=== PATIENT | female | born 1990 | race Caucasian/White ===

== ENCOUNTER 2017-07-27 03:03 | Emergency (ER) | payer OTHER ==
[2017-07-27 03:19] VITALS: BP 126/63; PULSE 76; TEMP 97.6; BMI 24.7
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
== END 2017-07-27 03:25 | disposition home or self-care (01) ==
LOC: JER 03:03
DX: S01.01XA Laceration without foreign body of scalp, initial encounter (principal); W20.8XXA Other cause of strike by thrown, projected or falling object, initial encounter; Y93.89 Activity, other specified; Y92.59 Other trade areas as the place of occurrence of the external cause; Y99.8 Other external cause status
CPT/HCPCS: 99282-25

== ENCOUNTER 2018-10-26 08:56 | Emergency (ER) | payer OTHER ==
[2018-10-26 09:00] VITALS: TEMP 98.2; BMI 22.6
[2018-10-26] MEDS ORDERED: SODIUM CHLORIDE 1,000 ML IV STA ×2 (09:23→10:00)
[2018-10-26] MEDS ORDERED: ONDANSETRON 4 MG/2 ML VIAL IVPB ONE (09:23)
--- NOTE | 2018-10-26 09:27 | PDOC ---
History of Present Illness - General Chief Complaint: Vomiting/Diarrhea Stated Complaint: CHEST PAIN Time Seen by Provider: 10/26/18 09:16 History Source: Patient Exam Limitations: No Limitations - History of Present Illness Initial Comments: 10/26/18 09:24 28 year old female with no past medical history presents with n/v/d and suprapubic discomfort since overnight. No sick contacts or recent travels. No known bad foods. Yesterday night, developed 2 episodes of NBNB emesis and some loose stools. Developed suprapubic discomfort that is described as crampy, almost like her menstrual period. However, pt LMP ~1 month ago and expects to have her cycle soon. Took a home test which tested negative. +tactile fevers and chills at home. Denies dysuria, urinary frequency, vaginal bleeding, flank pain. [place] generally unwell, so came into the ED. 10/26/18 09:25 Pt endorses NO chest pain to me. Past History - Past Medical History Allergies/Adverse Reactions: Allergies Allergy/AdvReac Type Severity Reaction Status Date / Time No Known Allergies Allergy Verified 10/26/18 09:00 Home Medications: Ambulatory Orders Acetaminophen [Tylenol] 650 mg PO Q4H PRN #20 tablet 10/26/18 Famotidine [Pepcid] 20 mg PO BID PRN #14 tablet 10/26/18 Ondansetron HCl [Zofran] 4 mg PO Q8H PRN #15 tablet 10/26/18 COPD: No - Immunization History Immunization Up to Date: Yes - Suicide/Smoking/Psychosocial Hx Smoking History: Never smoked Have you smoked in the past 12 months: No Number of Cigarettes Smoked Daily: 0 Hx Alcohol Use: No Drug/Substance Use Hx: No Substance Use Type: None Review of Systems - Review of Systems Able to Perform ROS?: Yes Comments:: 10/26/18 09:25 GENERAL/CONSTITUTIONAL: [No fever or chills. No weakness. No weight change.] HEAD, EYES, EARS, NOSE AND THROAT: [No change in vision. No ear pain or discharge. No sore throat.] CARDIOVASCULAR: [No chest pain or shortness of breath.] RESPIRATORY: [No cough, wheezing, or hemoptysis.] GASTROINTESTINAL: + nausea, vomiting, diarrhea. + abdominal pain. No rectal bleeding.] GENITOURINARY: [No dysuria, frequency, or change in urination.] MUSCULOSKELETAL: [No joint or muscle swelling or pain. No neck or back pain.] SKIN AND BREASTS: [No rash or easy bruising.] NEUROLOGIC: [No headache, vertigo, loss of consciousness, or loss of sensation.] PSYCHIATRIC: [No depression or anxiety.] ENDOCRINE: [No increased thirst. No abnormal weight change.] HEMATOLOGIC/LYMPHATIC: [No anemia, easy bleeding, or history of blood clots.] ALLERGIC/IMMUNOLOGIC: [No hives or skin allergy. No latex allergy.] *Physical Exam - Vital Signs Last Vital Signs Temp Pulse Resp BP Pulse Ox 98.2 F 75 18 104/58 L 99 10/26/18 08:58 10/26/18 08:58 10/26/18 08:58 10/26/18 08:58 10/26/18 08:58 - Physical Exam Comments: 10/26/18 09:26 GENERAL: Awake, alert, and fully oriented, in no acute distress HEAD: No signs of trauma EYES: EOMI, sclera anicteric, conjunctiva clear ENT: Auricles normal inspection, hearing grossly normal, nares patent NECK: Normal ROM, supple, LUNGS: Breath sounds equal, clear to auscultation bilaterally. No wheezes, and no crackles HEART: Regular rate and rhythm, normal S1 and S2, no murmurs, rubs or gallops ABDOMEN: Soft No guarding, no rebound. No masses. +suprapubic tenderness to palpation. Negative Mcburney's point. EXTREMITIES: Normal range of motion, no edema. No clubbing or cyanosis. No cords, erythema, or tenderness NEUROLOGICAL: Cranial nerves II through XII grossly intact. Normal speech SKIN: Warm, Dry, normal turgor, no rashes or lesions noted. Moderate Sedation - Procedure Monitoring Vital Signs: Procedure Monitoring Vital Signs Temperature 98.2 F 10/26/18 08:58 Pulse Rate 75 10/26/18 08:58 Respiratory Rate 18 10/26/18 08:58 Blood Pressure 104/58 L 10/26/18 08:58 O2 Sat by Pulse Oximetry (%) 99 10/26/18 08:58 ED Treatment Course - LABORATORY CBC & Chemistry Diagram: 10/26/18 09:31 10/26/18 09:31 Medical Decision Making - Medical Decision Making 10/26/18 09:26 Vital Signs Temp Pulse Resp BP Pulse Ox 98.2 F 75 18 104/58 L 99 10/26/18 08:58 10/26/18 08:58 10/26/18 08:58 10/26/18 08:58 10/26/18 08:58 This is a healthy 28-year-old female with nausea, vomiting, diarrhea and suprapubic pain. We'll need to check urine test. If positive, we'll need to obtain transvaginal ultrasound to evaluate for potential ectopic. However, if negative, I suspect the patient may either have cystitis or gastroenteritis. We'll obtain labs, urine prior to tests, treat symptoms give IV fluids and reassess. 10/26/18 11:29 CBC, BMP 10/26/18 09:31 10/26/18 09:31 CMP Sodium 140 mmol/L (136-145) 10/26/18 09:31 Potassium 4.5 mmol/L (3.5-5.1) 10/26/18 09:31 Chloride 108 mmol/L (98-107) H 10/26/18 09:31 Carbon Dioxide 28 mmol/L (21-32) 10/26/18 09:31 Anion Gap 3 MMOL/L (8-16) L 10/26/18 09:31 BUN 14 mg/dL (7-18) 10/26/18 09:31 Creatinine 0.7 mg/dL (0.55-1.3) 10/26/18 09:31 Creat Clearance w eGFR > 60 (>60) 10/26/18 09:31 Random Glucose 95 mg/dL (74-106) 10/26/18 09:31 Calcium 9.3 mg/dL (8.5-10.1) 10/26/18 09:31 Total Bilirubin 0.5 mg/dL (0.2-1) 10/26/18 09:31 AST 28 U/L (15-37) 10/26/18 09:31 ALT 45 U/L (13-61) 10/26/18 09:31 Alkaline Phosphatase 82 U/L (45-117) 10/26/18 09:31 Total Protein 7.4 g/dl (6.4-8.2) 10/26/18 09:31 Albumin 4.0 g/dl (3.4-5.0) 10/26/18 09:31 Urine Test Results Urine Color Yellow 10/26/18 10:43 Urine Appearance Clear 10/26/18 10:43 Urine pH 7.0 (5.0-8.0) 10/26/18 10:43 Ur Specific [place] 1.020 (1.010-1.035) 10/26/18 10:43 Urine Protein Negative (NEGATIVE) 10/26/18 10:43 Urine Glucose (UA) Negative (NEGATIVE) 10/26/18 10:43 Urine Ketones Negative (NEGATIVE) 10/26/18 10:43 Urine Blood Negative (NEGATIVE) 10/26/18 10:43 Urine Nitrite Negative (NEGATIVE) 10/26/18 10:43 Urine Bilirubin Negative (<2.0 mg/dL) 10/26/18 10:43 Ur Leukocyte Esterase Negative (NEGATIVE) 10/26/18 10:43 Urine test negative. The patient reports feeling significantly better. I suspect the patient likely has gastroenteritis. Will d/c her home with supportive care with return precautions. I discussed the physical exam findings, ancillary test results and final diagnoses with the patient. I answered all of the patient's questions. The patient was satisfied with the care received and felt comfortable with the discharge plan and treatment plan. The patient will call their primary care physician within 24 hours to arrange follow-up and will return to the Emergency Department with any new, persistant or worsening symptoms. *DC/Admit/Observation/Transfer Diagnosis at time of Disposition: Gastroenteritis - Discharge Dispostion Disposition: HOME Condition at time of disposition: Improved Decision to Admit order: No - Prescriptions Prescriptions: Acetaminophen [Tylenol] 650 mg PO Q4H PRN #20 tablet PRN Reason: Pain Famotidine [Pepcid] 20 mg PO BID PRN #14 tablet PRN Reason: GERD Ondansetron HCl [Zofran] 4 mg PO Q8H PRN #15 tablet PRN Reason: Nausea - Referrals Referrals: ON STAFF,NOT [Primary Care Provider] - - Patient Instructions Printed Discharge Instructions: DI for Viral Gastroenteritis -- Adult Additional Instructions: Please drink plenty of fluids and rest. It may take several days before your symptoms resolve. Take 650 mg tylenol every 4 hours as needed for pain and fever. Take 4 mg zofran every 8 hours as needed for nausea. Take 20 mg pepcid every 12 hours as needed for acid relux. If you have uncontrollable pain, please return to the ER. Otherwise, please follow up with your doctor. - Post Discharge Activity Forms/Work/School Notes: Back to Work
[2018-10-26] MEDS ORDERED: ONDANSETRON 4 MG/2 ML VIAL ONE (09:35)
[2018-10-26 09:48] LABS: BASO % 0.7 % (0-2.0); EOS % 3.9 % (0-4.5); HEMATOCRIT 37.5 % (32.4-45.2); HEMOGLOBIN 12.8 GM/dL (10.7-15.3); LYMPH % 26.8 % (8-40); MCH 29.6 pg (25.7-33.7); MCHC 34.2 g/dl (32.0-36.0); MEAN CELL VOLUME 86.7 fl (80-96); MEAN PLT VOLUME 9.8 fl (7.5-11.1); MONO % 9.9 % (3.8-10.2); NEUT % 58.7 % (42.8-82.8); PLATELET COUNT 155 K/MM3 (134-434); RBC 4.32 M/mm3 (3.60-5.2); RDW 13.2 % (11.6-15.6); WHITE BLOOD COUNT 6.2 K/mm3 (4.0-10.0)
[2018-10-26 10:15] LABS: ALK PHOS 82 U/L (45-117); ANION GAP 3 MMOL/L (8-16); BILIRUBIN,TOTAL 0.5 mg/dL (0.2-1); BLOOD UREA NITROGEN 14 mg/dL (7-18); CALCIUM 9.3 mg/dL (8.5-10.1); CHLORIDE 108 mmol/L (98-107); CO2 28 mmol/L (21-32); CREATININE 0.7 mg/dL (0.55-1.3); GLUCOSE,RANDOM 95 mg/dL (74-106); POTASSIUM 4.5 mmol/L (3.5-5.1); SGOT/AST 28 U/L (15-37); SGPT/ALT 45 U/L (13-61); SODIUM 140 mmol/L (136-145); TOT PROT 7.4 g/dl (6.4-8.2)
[2018-10-26 11:00] LABS: HCG,QUALITATIVE URINE Negative
[2018-10-26 11:18] LABS: URINE APPEARANCE CLEAR; URINE BILIRUBIN NEGATIVE (<2.0 mg/dL); URINE COLOR YELLOW; URINE GLUCOSE (UA) NEGATIVE (NEGATIVE); URINE KETONE NEGATIVE (NEGATIVE); URINE LEUK ESTERASE NEGATIVE (NEGATIVE); URINE NITRITE NEGATIVE (NEGATIVE); URINE PROTEIN NEGATIVE (NEGATIVE); URINE UROBILINOGEN NEGATIVE mg/dL (0.2-1.0)
[2018-10-26 11:21] VITALS: BP 103/48; PULSE 80
== END 2018-10-26 11:56 | disposition home or self-care (01) ==
LOC: JER 08:56
PROC: 3E0337Z Introduction of Electrolytic and Water Balance Substance into Peripheral Vein, Percutaneous Approach (ICD-10-PCS; principal; 2018-10-26)
PROC: 3E033GC Introduction of Other Therapeutic Substance into Peripheral Vein, Percutaneous Approach (ICD-10-PCS; 2018-10-26)
DX: K52.9 Noninfective gastroenteritis and colitis, unspecified (principal)
CPT/HCPCS: 36415; 80053; 81003; 84703; 85025; 87086; 96361; 96374; 99283-25; J7030

== ENCOUNTER 2019-03-03 12:48 | Emergency (ER) | payer OTHER ==
[2019-03-03 12:57] VITALS: BP 106/55; PULSE 81; TEMP 98.4; BMI 24.7
--- NOTE | 2019-03-03 12:59 | PDOC ---
Rapid Medical Evaluation Chief Complaint: Pain, Acute Time Seen by Provider: 03/03/19 12:55 Medical Evaluation: Allergies Allergy/AdvReac Type Severity Reaction Status Date / Time No Known Allergies Allergy Verified 10/26/18 09:00 03/03/19 12:55 The patient is a 28 y/o F who presents with lower abdominal pain x3 days. LMP January 13. Admits to vomiting. Denies fevers, chills, nausea, diarrhea, constipation, frequency, urgency and hematuira, and vaginal discharge Exam: generalized discomfort to the lower abdomen Orders, Labs, urine Pt to proceed to the ER for further evaluation Discharge Disposition - Diagnosis Abdominal pain Qualifiers: Abdominal location: generalized Qualified Code(s): R10.84 - Generalized abdominal pain - Discharge Dispostion Condition at time of disposition: Stable - Referrals - Patient Instructions - Post Discharge Activity
--- NOTE | 2019-03-03 13:39 | PDOC ---
History of Present Illness <Becki Paul - Last Filed: 03/03/19 15:42> - General History Source: Patient - History of Present Illness Timing/Duration: reports: constant Abdominal Pain Onset Location: reports: suprapubic <Olivia Loya - Last Filed: 03/03/19 16:35> - General Chief Complaint: Pain, Acute Stated Complaint: LWR ABD PAIN Time Seen by Provider: 03/03/19 12:55 Past History <Becki Paul - Last Filed: 03/03/19 15:42> - Past Medical History COPD: No - Immunization History Immunization Up to Date: Yes - Suicide/Smoking/Psychosocial Hx Smoking History: Never smoked Have you smoked in the past 12 months: No Number of Cigarettes Smoked Daily: 0 Information on smoking cessation initiated: No Hx Alcohol Use: No Drug/Substance Use Hx: No Substance Use Type: None <Olivia Loya - Last Filed: 03/03/19 16:35> - Past Medical History Allergies/Adverse Reactions: Allergies Allergy/AdvReac Type Severity Reaction Status Date / Time No Known Allergies Allergy Verified 10/26/18 09:00 Home Medications: Ambulatory Orders NK [No Known Home Medication] 03/03/19 Review of Systems - Review of Systems Constitutional: No: Chills, Fever ABD/GI: Yes: Nausea, Vomiting, Abdominal cramping. No: Blood Streaked Bowels, Constipated, Diarrhea, Rectal Bleeding : No: Dysuria, Flank Pain, Hematuria, Lesions Musculoskeletal: No: Back Pain <Olivia Loya - Last Filed: 03/03/19 16:35> *Physical Exam - Vital Signs Last Vital Signs Temp Pulse Resp BP Pulse Ox 98.4 F 81 18 106/55 L 100 03/03/19 12:55 03/03/19 12:55 03/03/19 12:55 03/03/19 12:55 03/03/19 12:55 <Becki Paul - Last Filed: 03/03/19 15:42> - Vital Signs Last Vital Signs Temp Pulse Resp BP Pulse Ox 98.4 F 81 18 106/55 L 100 03/03/19 12:55 03/03/19 12:55 03/03/19 12:55 03/03/19 12:55 03/03/19 12:55 - Physical Exam General Appearance: Yes: Appropriately Dressed. No: Apparent Distress HEENT: positive: Normal Voice Neck: positive: Supple Respiratory/Chest: negative: Respiratory Distress Female Pelvic Exam: positive: normal external exam. negative: CMT, discharge, lesions, adnexal tenderness, vaginal bleeding Gastrointestinal/Abdominal: positive: Tender (to suprapubic area diffusely, no ttp over mcburneys), Soft Musculoskeletal: negative: CVA Tenderness Integumentary: positive: Dry, Warm Neurologic: positive: Fully Oriented, Alert, Normal Mood/Affect <Olivia Loya - Last Filed: 03/03/19 16:35> ED Treatment Course - ADDITIONAL ORDERS Additional order review: Laboratory Results 03/03/19 14:07 Urine Color Yellow Urine Appearance Clear Urine pH 6.0 Ur Specific [place] 1.021 Urine Protein Negative Urine Glucose (UA) Negative Urine Ketones Negative Urine Blood Negative Urine Nitrite Negative Urine Bilirubin Negative Urine Urobilinogen 0.2 Ur Leukocyte Esterase Trace Urine WBC (Auto) 5 Urine RBC (Auto) 0 Urine Casts (Auto) 1 U Epithel Cells (Auto) 4.9 Urine Bacteria (Auto) 227.9 Urine HCG, Qual Negative <Becki Paul - Last Filed: 03/03/19 15:42> Medical Decision Making - Medical Decision Making The patient was seen and evaluated in conjunction with midlevel provider under my direct supervision, ancillary studies were reviewed. I agree with the plan as outlined KRISTAL Loya. HPI, workup/dispo as outlined. VS reviewed, wnl. anticipate discharge, pcp followup, return precautions 03/03/19 15:42 <Becki Paul - Last Filed: 03/03/19 15:42> - Medical Decision Making 03/03/19 13:34 28 yo F, no sig pmhx, here w/ pelvic pain w/ n/v. 3 days ago began having mid suprapubic pain on and off, 5-10 with mostly nausea that started last night. No dysuria, hematuria, vaginal discharge, odor, change in bowel movements, fever or chills. LMP 01/13/19, missed menses last month which is unusual per pt. States home test neg last week. Denies h/o similar episode See exam R/o preg vs UTI, unlikely torsion or PID given nl pelvic exam, no ttp over mcburneys to suggest appy -pain control -UA -US 03/03/19 16:26 UA w/ trace LE, 5 wbc and > 200 bacteria, ucx pending. Pt denies any dysuria. Will hold off on abx and send ucx. Pt remains well alec and in NAD in ED w/ minimal tenderness to mid suprapubic and no tenderness to right lower quadrant on repeat exam. Will dc to follow-up with her PUBLIC POLICY ANALYST for amenorrhea <Olivia Loya - Last Filed: 03/03/19 16:35> *DC/Admit/Observation/Transfer <Becki Paul - Last Filed: 03/03/19 15:42> <Olivia Loya - Last Filed: 03/03/19 16:35> Diagnosis at time of Disposition: Abdominal pain Qualifiers: Abdominal location: generalized Qualified Code(s): R10.84 - Generalized abdominal pain - Discharge Dispostion Disposition: HOME Condition at time of disposition: Stable - Patient Instructions Printed Discharge Instructions: DI for Pelvic Pain Additional Instructions: The cause of your pain in unclear at this time Please return for any worsening of sxs Please f/u with your PUBLIC POLICY ANALYST for amenorrhea as discussed
[2019-03-03 14:34] LABS: EPI CELLS 4.9 /HPF (0-5/HPF); HYALINE CASTS 1 /lpf (0-8); URINE APPEARANCE CLEAR; URINE BACTERIA 227.9 /hpf (NEGATIVE); URINE BILIRUBIN NEGATIVE (NEGATIVE); URINE COLOR YELLOW; URINE GLUCOSE (UA) NEGATIVE (NEGATIVE); URINE KETONE NEGATIVE (NEGATIVE); URINE LEUK ESTERASE TRACE (NEGATIVE); URINE NITRITE NEGATIVE (NEGATIVE); URINE PROTEIN NEGATIVE (NEGATIVE); URINE RBC 0 /hpf (0-4); URINE UROBILINOGEN 0.2 mg/dL (0.2-1.0); URINE WBC 5 /hpf (0-5)
[2019-03-03 14:36] LABS: HCG,QUALITATIVE URINE Negative
== END 2019-03-03 16:42 | disposition home or self-care (01) ==
LOC: JER 12:48
DX: R10.84 Generalized abdominal pain (principal)
CPT/HCPCS: 36415; 76830-TC; 76856-TC; 81003; 84703; 87086; 87186; 87491; 87591; 99282-25

== ENCOUNTER 2022-02-05 21:16 | Inpatient (IN) | payer OTHER ==
[2022-02-05 21:30] VITALS: BMI 24.7
[2022-02-05] MEDS ORDERED: PIPERACILLIN/TAZOB 4.5 GM 4.5 GM in DEXTROSE 5%-WATER 100 ML IVPB ONE (22:51)
[2022-02-05] MEDS ORDERED: VANCOMYCIN 1 GM in D5W (PRE-DOCKED) 1,000 MG/250 ML IVPB ONE (22:51)
[2022-02-05] MEDS ORDERED: VANCOMYCIN 1 GRAM (PRE-DOCKED) 1,000 MG/250 ML BAG IVPB ONE (22:54)
[2022-02-05] MEDS ORDERED: ACETAMINOPHEN 1000 MG/100 ML BAG IVPB ONE (22:55)
[2022-02-05 23:55] LABS: BASO % 0.5 % (0-2.0); EOS % 3.5 % (0-4.5); HEMATOCRIT 38.2 % (32.4-45.2); HEMOGLOBIN 12.3 GM/dL (10.7-15.3); LYMPH % 18.9 % (8-40); MCH 27.1 pg (25.7-33.7); MCHC 32.2 g/dl (32.0-36.0); MEAN CELL VOLUME 83.9 fl (80-96); MEAN PLT VOLUME 9.7 fl (7.5-11.1); MONO % 5.5 % (3.8-10.2); NEUT % 71.6 % (42.8-82.8); PLATELET COUNT 222 10^3/uL (134-434); RBC 4.55 M/mm3 (3.60-5.2); RDW 12.9 % (11.6-15.6); WHITE BLOOD COUNT 11.7 K/mm3 (4.0-10.0)
[2022-02-06 00:16] LABS: CALCIUM 9.4 mg/dL (8.5-10.1)
[2022-02-06 00:17] LABS: ALBUMIN 4.3 g/dl (3.4-5.0); BLOOD UREA NITROGEN 14.3 mg/dL (7-18)
[2022-02-06 00:20] LABS: CREATININE 0.8 mg/dL (0.55-1.3)
[2022-02-06 00:21] LABS: BILIRUBIN,TOTAL 0.3 mg/dL (0.2-1); TOT PROT 8.9 g/dl (6.4-8.2)
[2022-02-06] MEDS ORDERED: PIPERACILLIN/TAZOB 3.375 GM 3.375 GM/50 ML BAG IVPB ONE (05:55)
[2022-02-06] MEDS: PIPERACILLIN/TAZOB 3.375 GM 3.375 GM in DEXTROSE 5%-WATER - 50 ML IVPB SCH ×2 (06:08→10:20)
[2022-02-06 08:31] LABS: HEMATOCRIT 32.3 % (32.4-45.2); HEMOGLOBIN 10.9 GM/dL (10.7-15.3); MCH 28.2 pg (25.7-33.7); MCHC 33.7 g/dl (32.0-36.0); MEAN CELL VOLUME 83.6 fl (80-96); MEAN PLT VOLUME 10.3 fl (7.5-11.1); PLATELET COUNT 179 10^3/uL (134-434); RBC 3.87 M/mm3 (3.60-5.2); RDW 12.7 % (11.6-15.6); WHITE BLOOD COUNT 8.5 K/mm3 (4.0-10.0)
[2022-02-06 08:48] LABS: CALCIUM 8.6 mg/dL (8.5-10.1)
[2022-02-06 08:49] LABS: BLOOD UREA NITROGEN 12.4 mg/dL (7-18); MAGNESIUM 2.2 mg/dL (1.8-2.4)
[2022-02-06 08:52] LABS: CREATININE 0.8 mg/dL (0.55-1.3); PHOSPHOROUS 3.3 mg/dL (2.5-4.9)
[2022-02-06 08:53] LABS: BILIRUBIN,TOTAL 0.4 mg/dL (0.2-1)
[2022-02-06 08:59] LABS: ALBUMIN 3.4 g/dl (3.4-5.0); TOT PROT 6.9 g/dl (6.4-8.2)
[2022-02-06] MEDS ORDERED: PIPERACILLIN/TAZOBACTAM 3.375 GM VIAL IVPB ONE (09:54)
[2022-02-06] MEDS ORDERED: DEXTROSE 5%-WATER - 50 ML IVPB ONE (09:54)
[2022-02-06] MEDS: ENOXAPARIN NA (PORCINE) 40 MG/0.4 ML DISP.SYRIN SQ SCH (10:19)
[2022-02-06] MEDS: NAPH,MB-DB/K PH,MBDB POWDER PACKET PO SCH ×2 (10:20→21:59)
[2022-02-06] MEDS ORDERED: ACETAMINOPHEN 1000 MG/100 ML BAG IVPB PRN (10:22)
[2022-02-06] MEDS: VANCOMYCIN/WATER FOR INJ (PEG) 1,000 MG/200 ML BAG IVPB SCH (14:09)
[2022-02-06] MEDS: CEFAZOLIN 2 GM in DEXTROSE 5%-WATER - 100 ML IVPB SCH (17:44)
[2022-02-06] MEDS ORDERED: VANCOMYCIN 1 GM/200 ML PREMIX BAG IVPB SCH (23:00)
[2022-02-07] MEDS: VANCOMYCIN/WATER FOR INJ (PEG) 1,000 MG/200 ML BAG IVPB SCH ×2 (00:19→13:36)
[2022-02-07] MEDS ORDERED: PIPERACILLIN/TAZOB 3.375 GM 3.375 GM in DEXTROSE 5%-WATER - 50 ML IVPB SCH (02:00)
[2022-02-07] MEDS: CEFAZOLIN 2 GM in DEXTROSE 5%-WATER - 100 ML IVPB SCH ×3 (02:24→17:27)
[2022-02-07] MEDS ORDERED: SODIUM CHLORIDE 0.9% 500 ML INFUS.BAG IV ONE (09:03)
[2022-02-07 09:17] LABS: CALCIUM 9.1 mg/dL (8.5-10.1)
[2022-02-07 09:18] LABS: BLOOD UREA NITROGEN 8.2 mg/dL (7-18)
[2022-02-07 09:21] LABS: CREATININE 0.7 mg/dL (0.55-1.3)
[2022-02-07 10:04] LABS: BASO % 0.7 % (0-2.0); EOS % 6.8 % (0-4.5); HEMATOCRIT 34.5 % (32.4-45.2); HEMOGLOBIN 11.1 GM/dL (10.7-15.3); LYMPH % 30.9 % (8-40); MCH 27.5 pg (25.7-33.7); MCHC 32.2 g/dl (32.0-36.0); MEAN CELL VOLUME 85.4 fl (80-96); MEAN PLT VOLUME 10.3 fl (7.5-11.1); NEUT % 54.6 % (42.8-82.8); PLATELET COUNT 177 10^3/uL (134-434); RBC 4.04 M/mm3 (3.60-5.2); WHITE BLOOD COUNT 6.4 K/mm3 (4.0-10.0)
[2022-02-07] MEDS: ENOXAPARIN NA (PORCINE) 40 MG/0.4 ML DISP.SYRIN SQ SCH (10:06)
[2022-02-07 10:28] LABS: HIV INTERPRETATION NEGATIVE (NEGATIVE)
[2022-02-07] MEDS ORDERED: VANCOMYCIN 1 GM/200 ML PREMIX BAG IVPB SCH (23:00)
[2022-02-08] MEDS: VANCOMYCIN/WATER FOR INJ (PEG) 1,000 MG/200 ML BAG IVPB SCH ×2 (00:11→13:19)
[2022-02-08] MEDS: CEFAZOLIN 2 GM in DEXTROSE 5%-WATER - 100 ML IVPB SCH ×2 (01:55→10:52)
[2022-02-08 08:54] LABS: BASO % 0.9 % (0-2.0); EOS % 7.9 % (0-4.5); HEMATOCRIT 33.6 % (32.4-45.2); HEMOGLOBIN 11.1 GM/dL (10.7-15.3); LYMPH % 30.3 % (8-40); MCH 27.9 pg (25.7-33.7); MCHC 33.2 g/dl (32.0-36.0); MEAN CELL VOLUME 84.2 fl (80-96); MONO % 7.1 % (3.8-10.2); NEUT % 53.8 % (42.8-82.8); PLATELET COUNT 189 10^3/uL (134-434); RBC 3.99 M/mm3 (3.60-5.2); RDW 12.8 % (11.6-15.6); WHITE BLOOD COUNT 6.6 K/mm3 (4.0-10.0)
[2022-02-08 09:16] LABS: BLOOD UREA NITROGEN 6.4 mg/dL (7-18); CALCIUM 8.9 mg/dL (8.5-10.1)
[2022-02-08 09:20] LABS: CREATININE 0.7 mg/dL (0.55-1.3)
[2022-02-08] MEDS: ENOXAPARIN NA (PORCINE) 40 MG/0.4 ML DISP.SYRIN SQ SCH (10:52)
[2022-02-08 14:53] VITALS: TEMP 98.2
[2022-02-08 15:25] VITALS: BP 102/52; PULSE 63
== END 2022-02-08 19:05 | disposition home or self-care (01) | DRG 383 ==
LOC: JER 21:16 → JERBED 02-06 00:26 → J5S 02-06 07:22
PROVIDERS: ADMIT Internal Medicine; ATTEND Internal Medicine
DX: L03.113 Cellulitis of right upper limb (principal); B95.62 Methicillin resistant Staphylococcus aureus infection as the cause of diseases classified elsewhere; S50.861A Insect bite (nonvenomous) of right forearm, initial encounter; D72.829 Elevated white blood cell count, unspecified; W57.XXXA Bitten or stung by nonvenomous insect and other nonvenomous arthropods, initial encounter
CPT/HCPCS: 36415; 80048; 80053; 83036; 83735; 84100; 84703; 85025; 85027; 87040; 87070; 87186; 87205; 87389; 93005; 93010; 99285-25; C9803-CS; G0480; U0003; U0005

== ENCOUNTER 2025-02-27 02:28 | Observation (INO) | payer OTHER ==
[2025-02-27] MEDS: SODIUM CHLORIDE 0.9% 500 ML INFUS.BAG IV ONE ×2 (02:57→04:33)
[2025-02-27] MEDS ORDERED: ACETAMINOPHEN 325 MG TABLET (FP) ONE (03:00)
[2025-02-27] MEDS: ACETAMINOPHEN 325 MG TABLET (FP) PO ONE (03:05)
[2025-02-27 03:06] LABS: HEMATOCRIT 35.9 % (34.1-44.9); HEMOGLOBIN 11.5 g/dL (11.2-15.7); MEAN CELL VOLUME 89.1 fl (79.4-94.8); MEAN PLT VOLUME 11.3 fl (9.4-12.3); PLATELET COUNT 179 x10^3/uL (182-369)
[2025-02-27] MEDS ORDERED: LIDOCAINE 1%/EPI 1:100000 (20 ML MULTI DOSE VIAL) ONE (03:06)
[2025-02-27 03:26] LABS: CHLORIDE 104 mmol/L (98-107); POTASSIUM 3.6 mmol/L (3.5-5.1); SODIUM 139 mmol/L (136-145)
[2025-02-27 03:28] LABS: ALBUMIN 3.5 g/dl (3.4-5.0); ANION GAP 9 mmol/L (4-13); BLOOD UREA NITROGEN 21.4 mg/dL (7-18); CALCIUM 9.2 mg/dL (8.5-10.1); CO2 26 mmol/L (21-32); GLUCOSE,RANDOM 205 mg/dL (74-106)
[2025-02-27 03:31] LABS: CREATININE 1.2 mg/dL (0.55-1.3)
[2025-02-27 03:32] LABS: SGOT/AST 21 U/L (15-37); SGPT/ALT 20 U/L (13-61)
[2025-02-27 03:33] LABS: BILIRUBIN,TOTAL 0.3 mg/dL (0.2-1); TOT PROT 6.6 g/dl (6.4-8.2)
[2025-02-27 03:34] LABS: ALK PHOS 94 U/L (45-117)
[2025-02-27] MEDS: LIDOCAINE 1%/EPI 1:100000 (20 ML MULTI DOSE VIAL) IJ ONE (03:56)
[2025-02-27] MEDS ORDERED: DIPHTH,PERTUSS(ACELL),TET 0.5 ML DISP.SYRIN IM ONE (05:52)
[2025-02-27] MEDS: DIPHTH,PERTUSS(ACELL),TET 0.5 ML DISP.SYRIN IM ONE (06:03)
[2025-02-27 06:32] LABS: EPI CELLS 15 /uL (0-25.1); HYALINE CASTS 0 /uL (0-3.1); PH,URINE 5.5 (5.0-8.0); URINE APPEARANCE CLEAR; URINE BACTERIA 572 /uL (0-1359); URINE BILIRUBIN NEGATIVE (NEGATIVE); URINE COLOR YELLOW; URINE GLUCOSE (UA) NEGATIVE (NEGATIVE); URINE KETONE NEGATIVE (NEGATIVE); URINE LEUK ESTERASE TRACE (NEGATIVE); URINE NITRITE NEGATIVE (NEGATIVE); URINE PROTEIN NEGATIVE (NEGATIVE); URINE RBC 2 /uL (0-23.9); URINE UROBILINOGEN 0.2 mg/dL (0.2-1.0); URINE WBC 22 /uL (0-25.8)
[2025-02-27 06:55] LABS: POTASSIUM 4.4 mmol/L (3.5-5.1)
[2025-02-27 06:56] LABS: CALCIUM 8.8 mg/dL (8.5-10.1)
[2025-02-27 06:57] LABS: BLOOD UREA NITROGEN 19.6 mg/dL (7-18)
[2025-02-27 07:00] LABS: CREATININE 0.8 mg/dL (0.55-1.3)
[2025-02-27] MEDS: LACTATED RINGERS SOLUTION 1,000 ML/1,000 ML INFUS.BAG IV SCH (08:39)
[2025-02-27 17:22] VITALS: BMI 26.6
[2025-02-27 20:24] VITALS: RESP 18; TEMP 98.2
[2025-02-27] MEDS: ACETAMINOPHEN 500 MG TABLET (FP) PO PRN (21:48)
[2025-02-27] MEDS ORDERED: LIDOCAINE PATCH REMOVAL MC SCH (22:00)
[2025-02-27 22:05] VITALS: BP 120/64; PULSE 31
[2025-02-28] MEDS ORDERED: HEPARIN NA (PORCINE) 5,000 UNITS/ML 1ML VIAL SQ SCH (10:00)
== END 2025-02-27 23:46 | disposition home or self-care (01) ==
LOC: JER 02:28 → JERBED 05:17 → J4W 15:15
PROVIDERS: ADMIT Internal Medicine; ATTEND Internal Medicine
CPT/HCPCS: 36415; 70450-TC; 80048; 80053; 81003; 82533; 82962; 83036; 84443; 84484; 84702; 85027; 85379; 86803; 87086; 87389; 90715; 93005; 93010; 99285-25; G0378